=== PATIENT | male | born 1995 | race Caucasian/White ===

== ENCOUNTER 2022-07-14 21:37 | Emergency (ER) | payer OTHER, SELFPAY ==
[2022-07-14 21:48] VITALS: BP 107/70; PULSE 78; RESP 20; TEMP 37.1; O2SAT 95
[2022-07-14 22:15] LABS: SARS-CoV-2 Ag Negative (Negative)
[2022-07-14 22:29] LABS: Basophils Absolute Auto 0.04 K/mm3 (0.00-0.10); Basophils Percent Auto 0.3 % (0.0-1.0); Eosinophils Absolute Auto 0.11 K/mm3 (0.02-0.50); Eosinophils Percent Auto 0.7 % (1.0-6.0); Hemoglobin 14.3 g/dL (14.0-18.0); Immature Granulocyte Absolute 0.05 K/mm3 (0.00-0.00); Immature Granulocyte Percent A 0.3 % (0.0-0.0); Lymphocytes Absolute Auto 0.93 K/mm3 (1.10-4.50); Lymphocytes Percent Auto 6.3 % (18.0-42.0); Mean Corpuscular Hemoglobin 28.9 pg (27.0-31.0); Mean Corpuscular Volume 84.8 fL (78.0-102.0); Monocytes Percent Auto 2.7 % (2.0-11.0); Neutrophils Absolute Auto 13.2 K/mm3 (1.7-7.2); Neutrophils Percent Auto 89.7 % (50.0-70.0); Platelet Count Result 269 K/mm3 (150-420); Red Blood Count 4.95 M/mm3 (4.70-6.10); Red Cell Distribution Width 11.8 % (11.6-14.4); White Blood Count 14.7 K/mm3 (4.8-10.8)
[2022-07-14 22:44] LABS: Alanine Aminotransferase 21 U/L (16-63); Alkaline Phosphatase 72 U/L (46-116); Anion Gap 6 mmol/L (8-16); Aspartate Amino Transferase 15 U/L (15-37); Bilirubin,Total 0.8 mg/dL (0.00-1.00); Blood Urea Nitrogen 8 mg/dL (7-18); Calcium 8.3 mg/dL (8.5-10.1); Carbon Dioxide 29 mmol/L (21-32); Chloride 102 mmol/L (98-108); Estimated CRCL calculation 83 ml/min; Estimated Glomerular Filt Rate > 60; Glucose 112 mg/dL (70-99); Osmolality Calculated 283 mOsm/kg (285-295); Potassium 3.3 mmol/L (3.5-5.1); Sodium 137 mmol/L (136-145); Total Protein 7.1 g/dL (6.4-8.2)
--- NOTE | 2022-07-14 22:57 | ED.FEVER ---
HPI - Fever General Chief Complaint: Fever Stated Complaint: back pain, rectal bleeding Time Seen by Provider: 07/14/22 21:40 Source: patient Mode of arrival: ambulatory History of Present Illness HPI Narrative: Patient presents with weakness nasal congestion with some mild shortness of breath no cough no nausea vomiting there is currently no abdominal pain no neck stiffness patient says that he a bout of bloody stool earlier today. With no abdominal pain no diarrhea constipation. MD elicited complaint: weakness Related Data Allergies Allergy/AdvReac Type Severity Reaction Status Date / Time ibuprofen [From Motrin] Allergy Flushing Verified 07/14/22 21:59 Review of Systems Review of Systems: All systems reviewed & are unremarkable except as noted in HPI and below PMFSH Past Medical History Medical History Patient denies medical problems Exam Const: General: healthy appearing and no acute distress Limitations: no limitations HENMT: Head: normal to inspection Face and sinus: normal facial exam Mouth: Yes Normal oral and palatal mucosa present Eyes: Conjunctivae: conjunctivae normal Neck: Neck: normal visual inspection, no lymphadenopathy and no meningeal signs Chest: Chest palpation & inspection: normal inspection of the chest Resp: Effort & Inspection: normal respiratory effort Auscultation: clear to auscultation bilaterally Cardio: Rate: regular rate Rhythm: regular rhythm GI: GI Palp: Yes Soft to palpation Auscultation: normal bowel sounds Rectal Exam: normal sphincter tone Other: rectal exam shows hemorrhoid that appears to have a ruptured at the 12 o'clock position otherwise no blood in the rectal vault no overt blood. Urinary Catheter: Urinary Catheter: patent and draining Skin: General skin exam: normal color Rashes: no rashes Neuro: General: patient oriented x3 and moves all extremities Course BUSINESS ANALYSIS ANALYST/PA Physician Supervision Patient received a dose of Zithromax and a dose of [place] [address] with potassium of 3.3 COVID negative. Vital Signs Vital signs: Vital Signs Temperature 37.1 C 07/14/22 21:48 Pulse Rate 78 07/14/22 21:48 Respiratory Rate 20 07/14/22 21:48 Blood Pressure 107/70 07/14/22 21:48 Pulse Oximetry 95 07/14/22 21:48 Oxygen Delivery Room Air 07/14/22 21:48 Temperature 37.1 C 07/14/22 21:48 Pulse Rate 78 07/14/22 21:48 Respiratory Rate 20 07/14/22 21:48 Blood Pressure 107/70 07/14/22 21:48 Pulse Oximetry 95 07/14/22 21:48 Oxygen Delivery Room Air 07/14/22 21:48 MDM - Fever Lab Data Result diagrams: 07/14/22 22:25 07/14/22 22:25 Labs: Lab Results 07/14/22 07/14/22 07/14/22 Range/Units 21:55 22:25 22:25 WBC 14.7 H (4.8-10.8) K/mm3 RBC 4.95 (4.70-6.10) M/mm3 Hgb 14.3 (14.0-18.0) g/dL Hct 42.0 (40.0-54.0) % MCV 84.8 (78.0-102.0) fL MCH 28.9 (27.0-31.0) pg MCHC 34.0 (32.0-36.0) g/dL RDW 11.8 (11.6-14.4) % Plt Count 269 (150-420) K/mm3 MPV 9.0 (8.7-11.0) fl Immature Gran % (Auto) 0.3 H (0.0-0.0) % Neut % (Auto) 89.7 H (50.0-70.0) % Lymph % (Auto) 6.3 L (18.0-42.0) % Aiken % (Auto) 2.7 (2.0-11.0) % Eos % (Auto) 0.7 L (1.0-6.0) % Baso % (Auto) 0.3 (0.0-1.0) % Lymph # (Auto) 0.93 L (1.10-4.50) K/mm3 Aiken # (Auto) 0.40 (0.10-0.90) K/mm3 Eos # (Auto) 0.11 (0.02-0.50) K/mm3 Baso # (Auto) 0.04 (0.00-0.10) K/mm3 Abs Immat Gran (auto) 0.05 H (0.00-0.00) K/mm3 Absolute Neuts (auto) 13.2 H (1.7-7.2) K/mm3 Absolute Nucleated RBC 0.00 (0.00-0.00) K/mm3 Nucleated RBC % 0.0 (0-0.0) % Sodium 137 (136-145) mmol/L Potassium 3.3 L (3.5-5.1) mmol/L Chloride 102 (98-108) mmol/L Carbon Dioxide 29 (21-32) mmol/L Anion Gap 6 L (8-16) mmol/L BUN 8 (7-18) mg/dL Creatinine 0.99
[2022-07-14] MEDS: AZITHROMYCIN 250 MG TABLET 1000 MG PO (23:02)
[2022-07-14] MEDS: POTASSIUM CHLORIDE 20 MEQ TABLET 40 MEQ PO (23:03)
[2022-07-14 23:07] VITALS: BP 112/60; PULSE 78; RESP 20; TEMP 37; O2SAT 98
== END 2022-07-14 23:18 | disposition home or self-care (01) ==
PROVIDERS: Emergency Provider Emergency Medicine
DX: J06.9 Acute upper respiratory infection, unspecified (principal); Z20.822 Contact with and (suspected) exposure to COVID-19
CPT/HCPCS: 36415; 80053; 85025; 87426; 99283; A9270; C9803

== ENCOUNTER 2023-01-04 20:34 | Emergency (ER) | payer OTHER, SELFPAY ==
[2023-01-04 20:46] VITALS: BP 140/60; PULSE 60; RESP 18; TEMP 36.9; O2SAT 100
[2023-01-04 20:59] LABS: Basophils Percent Auto 0.6 % (0.2-1.2); Eosinophils Absolute Auto 0.2 K/mm3 (0-0.3); Eosinophils Percent Auto 2.8 % (0-4.4); Hematocrit 43.2 % (42.0-52.0); Hemoglobin 14.8 g/dL (14.0-18.0); Immature Granulocyte Absolute 0.02 K/mm3 (0.00-0.031); Immature Granulocyte Percent A 0.3 % (0-0.5); Lymphocytes Absolute Auto 1.59 K/mm3 (0.9-3.2); Lymphocytes Percent Auto 23.6 % (18.3-44.2); Mean Corpuscular HGB Conc 34.3 g/dl (32-36); Mean Corpuscular Hemoglobin 29.5 pg (26-34); Mean Corpuscular Volume 86.1 fl (80-100); Mean Platelet Volume 9.3 fl (7.4-10.4); Monocytes Absolute Auto 0.6 K/mm3 (0.1-0.6); Monocytes Percent Auto 9.1 % (2.6-8.5); Neutrophils Absolute Auto 4.3 K/mm3 (1.3-6.7); Neutrophils Percent Auto 63.6 % (45.5-73.1); Platelet Count Result 286 k/mm3 (150-375); Red Blood Count 5.02 M/mm3 (4.6-6.20); Red Cell Distribution Width 12.4 % (11.5-14.5); White Blood Count 6.7 K/mm3 (4.5-10.0)
[2023-01-04 21:11] LABS: Alanine Aminotransferase 24 U/L (6-50); Albumin Level 4.5 g/dL (3.5-5.1); Alkaline Phosphatase 61 U/L (38-126); Anion Gap 5 mmol/L (8-16); Aspartate Amino Transferase 21 U/L (17-59); Bilirubin,Total 1.2 mg/dL (0.2-1.3); Blood Urea Nitrogen 7 mg/dL (9-20); Calcium 8.8 mg/dL (8.4-10.2); Carbon Dioxide 32 mmol/L (22-30); Chloride 102 mmol/L (98-107); Estimated CRCL calculation 96 ml/min; Estimated Glomerular Filt Rate > 60; Glucose 110 mg/dL (65-110); Potassium 4.2 mmol/L (3.4-5.0); Sodium 139 mmol/L (137-145)
[2023-01-04 21:16] LABS: INR 1.2; Prothrombin Time 14.4 Seconds (11.1-14.7)
[2023-01-04 21:17] LABS: Partial Thromboplastin Time 31.1 SECONDS (22.3-36.8)
[2023-01-05 02:30] VITALS: BP 134/76; PULSE 67; RESP 16; O2SAT 98
--- NOTE | 2023-01-05 02:46 | ED.GIBLEED ---
HPI - GI Bleed General Chief complaint: GI Bleed <Kristin Aldana PA-C - Last Filed: 01/05/23 02:48> Stated complaint: Blood in stool <Kristin Aldana PA-C - Last Filed: 01/05/23 02:48> Time Seen by Provider: 01/05/23 02:03 <Kristin Aldana PA-C - Last Filed: 01/05/23 02:48> History of Present Illness HPI Narrative: 27-year-old male here for evaluation of painless rectal bleeding for the past week. Was seen at outside hospital and diagnosed with hemorrhoids, told to follow-up with GI. He has not been using any medicines for his hemorrhoids. States that today he had an increased amount of blood in the toilet and on the tissue when he wiped. States that he has been straining to have BMs. No abdominal pain or rectal pain. No history of blood thinner use. <Kristin Aldana PA-C - Last Filed: 01/05/23 02:48> Related Data Allergies/Adverse reactions: Allergies Allergy/AdvReac Type Severity Reaction Status Date / Time ibuprofen [From Motrin] Allergy Flushing Verified 07/14/22 21:59 <Kristin Aldana PA-C - Last Filed: 01/05/23 02:48> Review of Systems Review of Systems: Gen.: Denies fevers or chills Eyes: Denies eye pain or visual change ENT: Denies congestion Respiratory: Denies shortness of breath or cough CV: Denies chest pain or palpitations GI: Denies abdominal pain nausea, emesis or diarrhea reports rectal bleeding. Denies burning, urgency, frequency or hematuria Musculoskeletal: Denies back pain or muscle pain Neuro: Denies numbness, tingling, weakness or focal weakness Skin: Denies rash Except as documented, all other systems reviewed and negative <Kristin Aldana PA-C - Last Filed: 01/05/23 02:48> PMFSH Past Medical History Medical History: Medical History Patient denies medical problems <Kristin Aldana PA-C - Last Filed: 01/05/23 02:48> Exam Narrative: APPEARANCE: Well appearing, no pain in distress, well-nourished. Head: Normocephalic and atraumatic. EYES: PERRLA/EOMI, conjunctivae clear NOSE: No nasal drainage EARS: External ear normal in appearance THROAT: Oropharynx is clear. Mucous membranes are moist. NECK: Supple. No adenopathy, no masses. RESPIRATORY: Airway patent, respirations nonlabored. Clear to auscultation bilaterally, no rales, rhonchi, wheezing. CARDIOVASCULAR: Regular rate and rhythm without murmurs, rubs, or gallops. : Patient has a external hemorrhoid palpated at the 8:00 region that is tender to palpation and nonthrombosed. ABDOMINAL: Normoactive bowel sounds. Soft, nontender, nondistended. No rebound tenderness or guarding. MUSCULOSKELETAL: Extremities are warm and well-perfused. Moves all extremities well. No edema. NEURO: Normal speech. No focal neurologic deficits. SKIN: Skin is warm and dry. No rashes. PSYCHIATRIC: Normal affect/mood.. <Kristin Aldana PA-C - Last Filed: 01/05/23 02:48> Course CLINICAL TRIAL MANAGER/PA Physician Supervision This is a was performed by both a physician and an APC. I performed all aspects of the MDM as documented w/ the following additions: 27-year-old coming in for GI bleed. He has been diagnosed with hemorrhoids. Hemorrhoids were confirmed on visual inspection. Patient discharged to follow-up with his GI doctor. All questions answered. Patient in agreement w/ disposition. <Tyler Moise MD - Last Filed: 01/06/23 03:40> Vital Signs Vital signs: Vital Signs Temperature 98.5 F 01/04/23 20:46 Pulse Rate 60 01/04/23 20:46 Respiratory Rate 18 01/04/23 20:46 Blood Pressure 140/60 01/04/23 20:46 Pulse Oximetry 100 01/04/23 20:46 Oxygen Delivery Room Air 01/04/23 20:46 Temperature 98.5 F 01/04/23 20:46 Pulse Rate 67 01/05/23 02:30 Respiratory Rate 16 01/05/23 02:30 Blood Pressure 134/76 03/09/23 02:30 Pulse Oximetry 98 01/05/23 02:30 Oxygen Delivery Room
== END 2023-01-05 02:32 | disposition home or self-care (01) ==
PROVIDERS: Emergency Medicine; Emergency Provider Physician Assistant; PCP Emergency Medicine
DX: K64.4 Residual hemorrhoidal skin tags (principal)
CPT/HCPCS: 36415; 80053; 85025; 85610; 85730; 86850; 86900; 86901; 99283